=== PATIENT | male | born 1990 | race Caucasian/White ===

== ENCOUNTER 2019-02-03 21:28 | Emergency (ER) | payer SELFPAY ==
[~2019-02-03] VITALS: Ht 177.8 cm; Wt 98.0 kg
[2019-02-03] MEDS ORDERED: LORAZEPAM 2MG/ML CPJ IV STA (22:42)
[2019-02-03] MEDS ORDERED: SODIUM CHLORIDE 0.9% 1,000 ML IV ONE (22:42)
[2019-02-03 23:12] LABS: BASOPHILS % 0.6 % (0.0-2.0); HEMATOCRIT. 43.3 % (42.0-52.0); LYMPHOCYTES % 32.1 % (20.0-50.0); MEAN CORPUSCULAR HEMOGLOBIN 31.4 pg (28.0-32.0); MEAN CORPUSCULAR VOLUME 90.8 fL (80.0-94.0); MEAN PLATELET VOLUME 8.1 fl (7.4-10.4); NEUTROPHILS % 55.3 % (40.0-76.0); PLATELET 252 x1000/uL (130-400); RED BLOOD CELL COUNT 4.77 mill/uL (4.7-6.1)
[2019-02-03 23:15] LABS: CHLORIDE 110 mEq/L (98-107)
[2019-02-03 23:19] LABS: ETHANOL BLOOD 236 mg/dL
[2019-02-03 23:24] LABS: CREATINE KINASE 236 IU/L (39-308)
[2019-02-04 07:04] VITALS: BP 117/61
== END 2019-02-04 07:22 | disposition home or self-care (01) ==
LOC: EDBD 21:28 → ER 21:28
DX: S00.83XA Contusion of other part of head, initial encounter (principal); T51.0X1A Toxic effect of ethanol, accidental (unintentional), initial encounter; G92 Toxic encephalopathy; F10.129 Alcohol abuse with intoxication, unspecified; Y90.7 Blood alcohol level of 200-239 mg/100 ml; Y29.XXXA Contact with blunt object, undetermined intent, initial encounter; Y93.89 Activity, other specified; Y92.89 Other specified places as the place of occurrence of the external cause; F17.210 Nicotine dependence, cigarettes, uncomplicated
CPT/HCPCS: 36415; 70450; 80053; 80307; 80320; 80329; 82550; 82962; 84443; 85025; 93005; 96374; 99284; J2060; J7030; G0480